=== PATIENT | female | born 1955 | race Caucasian/White ===

== ENCOUNTER 2019-05-23 07:34 | Emergency (ER) | payer OTHER | END 2019-05-23 12:25 | disposition home or self-care (01) | LOC: JER 07:34 ==

== ENCOUNTER 2019-05-25 19:02 | Inpatient (IN) | payer OTHER ==
[2019-05-25 19:23] VITALS: BMI 30.7
--- NOTE | 2019-05-25 20:37 | PDOC ---
History of Present Illness - General Chief Complaint: Pain Stated Complaint: ABD PAIN Time Seen by Provider: 05/25/19 20:36 History Source: Patient, Sibling (sister) Exam Limitations: Language Barrier - History of Present Illness Initial Comments: 05/25/19 21:08 Quita Mayen is a 64yF with PMHx of diabetes presenting with suprapubic pain. Pain constant for last 4d, in suprapubic region radiating to L flank and back. Associated nausea. Was seen 4d ago, diagnosed with mild subclinical diverticulitis and d/c with pain meds and antibiotics. CT showed hepatosplenomegaly and 2cm adenoma with no signs of diverticulitis. Continues to have pain despite medication. Threw up 5x today, last emesis 3pm, non bloody. Denies fever, chest pain, urinary, vaginal symptoms, bowel movement changes. Past History - Past Medical History Allergies/Adverse Reactions: Allergies Allergy/AdvReac Type Severity Reaction Status Date / Time No Known Allergies Allergy Verified 05/25/19 19:22 Home Medications: Ambulatory Orders metFORMIN HCL [Metformin HCl] 0 mg PO BID 05/26/19 COPD: No Diabetes: Yes - Suicide/Smoking/Psychosocial Hx Smoking History: Never smoked Information on smoking cessation initiated: No Hx Alcohol Use: No Drug/Substance Use Hx: No Review of Systems - Review of Systems Constitutional: No: Chills, Fever HEENTM: No: Eye Pain, Nose Pain, Throat Pain, Mouth Pain Respiratory: No: Cough, Shortness of Breath Cardiac (ROS): No: Chest Pain, Palpitations, Syncope ABD/GI: Yes: Nausea, Vomiting. No: Abdominal Distended, Constipated, Diarrhea, Rectal Bleeding : No: Burning, Dysuria, Discharge, Hematuria, Incontinence, Pain, Urgency Musculoskeletal: Yes: Back Pain (left). No: Joint Pain, Muscle Pain, Muscle Weakness Integumentary: No: Bruising, Flushing, Lesions, Lumps Neurological: No: Headache, Paresthesia, Seizure, Tingling Psychiatric: No: Anxiety, Depression Endocrine: No: Excessive Sweating, Flushing, Intolerance to Cold, Intolerance to Heat Hematologic/Lymphatic: No: Anemia, Blood Clots, Easy Bleeding *Physical Exam - Vital Signs Last Vital Signs Temp Pulse Resp BP Pulse Ox 98.1 F 81 18 123/82 97 05/25/19 19:20 05/25/19 19:20 05/25/19 19:20 05/25/19 19:20 05/25/19 19:20 - Physical Exam General Appearance: Yes: Nourished, Appropriately Dressed. No: Apparent Distress HEENT: positive: EOMI, JENNIFER, Normal Voice, Hearing Grossly Normal. negative: Tonsillar Exudate, Sinus Tenderness Respiratory/Chest: positive: Lungs Clear, Normal Breath Sounds. negative: Chest Tender, Respiratory Distress, Decreased Breath Sounds, Crackles, Rales, Rhonchi, Stridor, Wheezing Gastrointestinal/Abdominal: positive: Normal Bowel Sounds, Tender (mild tenderness suprapubic region, mild discomfort L flank), Flat, Soft, Organomegaly. negative: Pulsatile Mass, Distended, Guarding, Rebound, Hernia, Mass Musculoskeletal: positive: Normal Inspection. negative: CVA Tenderness (R) ( minimal discomfort L paraspinal thoracic region), CVA Tenderness (L), Muscle Spasm, Vertebral Tenderness Integumentary: positive: Normal Color Neurologic: positive: Fully Oriented, Alert, Normal Mood/Affect, Normal Response. negative: Sensory Deficit, Confused, Disoriented ED Treatment Course - LABORATORY CBC & Chemistry Diagram: 05/25/19 22:25 05/25/19 22:25 Medical Decision Making - Medical Decision Making 05/25/19 21:04 CBC CMP lipase UA zofran for nausea morphine reduced pain to 5 Cr 1.9 - PRINCE UA normal ordered CT AB/pelvis Quita Mayen is a 64yF with PMHx of diabetes presenting with suprapubic pain. Given zofran, 4 morphine w partial pain relief. PRINCE with Cr 1.9 UA normal lowering likelihood of UTI/nephrolithiasis. Pending CT AB Admit to inpatient for PRINCE and intractable suprapubic pain. *DC/Admit/Observation/Transfer Diagnosis at time of Disposition: PRINCE (acute kidney injury), Suprapubic pain, acute - Discharge Dispostion Condition at time of disposition: Stable - Referrals Referrals: Waldemar Mayen MD [Primary Care Provider] - - Patient Instructions - Post Discharge Activity
[2019-05-25] MEDS ORDERED: morphine CARPU-JECT 4 MG/1 ML DISP.SYRIN IVPUSH ONE (21:02)
[2019-05-25] MEDS ORDERED: ONDANSETRON 4 MG/2 ML VIAL IVPUSH ONE (21:03)
[2019-05-25] MEDS ORDERED: MORPHINE SULFATE 2 MG/ML VIAL ONE (21:44)
[2019-05-25] MEDS ORDERED: ONDANSETRON 4 MG/2 ML VIAL ONE (21:45)
[2019-05-25 22:56] LABS: BASO % 0.2 % (0-2.0); EOS % 0.9 % (0-4.5); HEMATOCRIT 39.7 % (32.4-45.2); LYMPH % 12.3 % (8-40); MCH 28.2 pg (25.7-33.7); MCHC 32.9 g/dl (32.0-36.0); MEAN CELL VOLUME 85.8 fl (80-96); MEAN PLT VOLUME 10.9 fl (7.5-11.1); MONO % 5.1 % (3.8-10.2); NEUT % 81.5 % (42.8-82.8); PLATELET COUNT 90 K/MM3 (134-434); RBC 4.63 M/mm3 (3.60-5.2); RDW 15.9 % (11.6-15.6); WHITE BLOOD COUNT 8.1 K/mm3 (4.0-10.0)
[2019-05-25 23:18] LABS: ALBUMIN 4.2 g/dl (3.4-5.0); BILIRUBIN,TOTAL 0.6 mg/dL (0.2-1); BLOOD UREA NITROGEN 28.1 mg/dL (7-18); CALCIUM 9.4 mg/dL (8.5-10.1); CREATININE 1.9 mg/dL (0.55-1.3); TOT PROT 7.8 g/dl (6.4-8.2)
[2019-05-25] MEDS ORDERED: SODIUM CHLORIDE 0.9% 500 ML INFUS.BAG IV ONE (23:30)
[2019-05-25] MEDS ORDERED: FAMOTIDINE 20 MG/50 ML IVPB 20 MG/50 ML MG IVPB ONE (23:43)
--- NOTE | 2019-05-25 23:45 | PDOC ---
Documentation entered by Verito Yoo SCRIBE, acting as scribe for Barbara Archer MD. Barbara Archer MD: This documentation has been prepared by the Naila horton Brenda, SCRIBE, under my direction and personally reviewed by me in its entirety. I confirm that the documentation accurately reflects all work, treatment, procedures, and medical decision making performed by me. Attending Attestation - Resident Resident Name: Ashley,Berny - ED Attending Attestation I have performed the following: I have examined & evaluated the patient, The case was reviewed & discussed with the resident, I agree w/resident's findings & plan, Exceptions are as noted - HPI HPI: 05/25/19 21:48 The patient is a 61 year old female, with a significant PMH of DM who presents to the emergency department with 4 days of supoerpubic abdominal pain, accompanied by nausea and 5 episodes of NBNB emesis. As per patient, the superpubc pain radiates to his left flank. She reports being at [facility] 4 days ago for the same symptoms, and was diagnosed with subclinical diverticulitis and was discharged with pain medications and antibiotics. Patient reports continued pain despite medications, prompting her arrival to the ED. Patient endorses dysuria. The patient denies chest pain, shortness of breath, headache and dizziness. Denies fever, chills, diarrhea and constipation. Allergies: NKA Social history: Denies any tobacco, alcohol, or drug use. PCP:Waldemar Mayen - Physicial Exam PE: 05/25/19 23:28 GENERAL: Awake, alert, and fully oriented, in no acute distress HEAD: No signs of trauma EYES: PERRLA, EOMI, sclera anicteric, conjunctiva clear ENT: Auricles normal inspection, hearing grossly normal, nares patent, oropharynx clear without exudates. Moist mucosa NECK: Normal ROM, supple, no lymphadenopathy, JVD, or masses LUNGS: Breath sounds equal, clear to auscultation bilaterally. No wheezes, and no crackles HEART: Regular rate and rhythm, normal S1 and S2, no murmurs, rubs or gallops ABDOMEN: (+) LLQ tenderness to palpation. Soft. No guarding, no rebound. No masses EXTREMITIES: Normal range of motion, no edema. No clubbing or cyanosis. No cords, erythema. NEUROLOGICAL: Cranial nerves II through XII grossly intact. Normal speech, normal gait SKIN: Warm, Dry, normal turgor, no rashes or lesions noted. - Medical Decision Making 05/25/19 23:44 Pt will be sent for a dry CT abd pelvis as she has new renal insufficiency, and because she has slightly higher WBC with left shift and she has LLQ pain that is persistent despite abx; perhaps she has infection or hernia. 05/26/19 04:00 Patient Name: MAGDALENA MAYEN THIS IS A PRELIMINARY REPORT FROM [facility] DATE OF SERVICE: 2019-05-26 01:20:52 IMAGES: [id number] EXAM: CT ABDOMEN AND PELVIS WITHOUT CONTRAST No nephrolithiasis, ureterolithiasis or obstructive uropathy. No bladder calculi. Nonspecific trace right perinenephric fat stranding. Unremarkable pancreas and gallbladder. Hepatosplenomegaly. 2.1 cm adenoma right adrenal gland. No bowel obstruction, colitis, diverticulitis, free fluid or free air. Normal appendix. Calcified uterine fibroid. Bone island T9. Hemangioma right ilium. Degenerative changes bilateral hips. Cystic focus with well-defined sclerotic borders left femoral neck. Pt will be admitted for Acute renal insufficiency.
[2019-05-26 00:18] LABS: URINE APPEARANCE CLEAR; URINE BILIRUBIN NEGATIVE (NEGATIVE); URINE COLOR YELLOW; URINE GLUCOSE (UA) NEGATIVE (NEGATIVE); URINE KETONE NEGATIVE (NEGATIVE); URINE LEUK ESTERASE NEGATIVE (NEGATIVE); URINE NITRITE NEGATIVE (NEGATIVE); URINE PROTEIN NEGATIVE (NEGATIVE); URINE UROBILINOGEN 0.2 mg/dL (0.2-1.0)
[2019-05-26] MEDS ORDERED: morphine CARPU-JECT 4 MG/1 ML DISP.SYRIN IVPUSH ONE (02:58)
[2019-05-26] MEDS ORDERED: MORPHINE SULFATE 2 MG/ML VIAL ONE (03:30)
[2019-05-26] MEDS ORDERED: ONDANSETRON 4 MG/2 ML VIAL IVPUSH PRN (08:35)
--- NOTE | 2019-05-26 08:45 | HP ---
Admitting History and Physical - Primary Care Physician PCP: Waldemar Mayen - Admission Chief Complaint: Abdominal pain with vomiting History of Present Illness: Patient is a 64 y/o female with past medical history of DM. Patient presented to ER with complaints of non-radiating L sided abdominal pain with vomiting. She presented to ER 3 days ago for same chief complaint and was discharged home with PO antibiotics. Yesterday L sided abdominal pain accompanied with 3 episodes of NBNB vomiting. Patient denies recent travel, fever, chills. History Source: Patient, Family Member Limitations to Obtaining History: Language Barrier ([id number] translate at bedside) - Past Medical History Endocrine: Yes: Diabetes Mellitus - Past Surgical History Past Surgical History: Yes: None - Smoking History Smoking history: Never smoked - Alcohol/Substance Use Hx Alcohol Use: No - Social History ADL: Independent History of Recent Travel: No Home Medications - Allergies Allergies/Adverse Reactions: Allergies Allergy/AdvReac Type Severity Reaction Status Date / Time No Known Allergies Allergy Verified 05/25/19 19:22 - Home Medications Home Medications: Ambulatory Orders metFORMIN HCL [Metformin HCl] 0 mg PO BID 05/26/19 Review of Systems - Review of Systems Constitutional: reports: No Symptoms Eyes: reports: No Symptoms HENT: reports: No Symptoms Neck: reports: No Symptoms Cardiovascular: reports: No Symptoms Respiratory: reports: No Symptoms Gastrointestinal: reports: Abdominal Pain, Constipation Genitourinary: reports: No Symptoms Breasts: reports: No Symptoms Reported Musculoskeletal: reports: No Symptoms Integumentary: reports: Pruritis (RUE), Rash Neurological: reports: No Symptoms Endocrine: reports: No Symptoms Hematology/Lymphatic: reports: No Symptoms Psychiatric: reports: No Symptoms Physical Examination Vital Signs: Vital Signs Temperature 98.2 F 05/25/19 21:05 Pulse Rate 64 05/25/19 21:05 Respiratory Rate 18 05/25/19 21:05 Blood Pressure 146/81 05/25/19 21:05 O2 Sat by Pulse Oximetry (%) 95 05/25/19 21:05 Constitutional: Yes: No Distress, Calm Eyes: Yes: Conjunctiva Clear HENT: Yes: Atraumatic Neck: Yes: Supple Cardiovascular: Yes: Regular Rate and Rhythm Respiratory: Yes: Regular, CTA Bilaterally Gastrointestinal: Yes: Normal Bowel Sounds, Soft, Tenderness (LLQ) Musculoskeletal: Yes: WNL Extremities: Yes: WNL Edema: No Integumentary: Yes: Rash (RUE) Neurological: Yes: Alert, Oriented Psychiatric: Yes: Alert, Oriented Labs: CBC, BMP 05/25/19 22:25 05/25/19 22:25 Imaging - Results Cat Scan: Pending Problem List - Problems (1) Diabetes mellitus Assessment/Plan: -BGM ACHS -HgA1c -Metformin -ISS -when resume PO intake will order diabetic diet Code(s): E11.9 - TYPE 2 DIABETES MELLITUS WITHOUT COMPLICATIONS (2) PRINCE (acute kidney injury) Assessment/Plan: -BUN/Cr -IV hydration -if renal function does not improve will consider renal consult -monitor renal function daily Code(s): N17.9 - ACUTE KIDNEY FAILURE, UNSPECIFIED (3) Abdominal pain Assessment/Plan: -CT scan results pending -Clear liquid diet -GI consult -IV hydration -zofran prn for nausea -pantoprazole Code(s): R10.9 - UNSPECIFIED ABDOMINAL PAIN Qualifiers: Abdominal location: left lower quadrant Qualified Code(s): R10.32 - Left lower quadrant pain Assessment/Plan see problem list dvt ppx
[2019-05-26] MEDS ORDERED: morphine CARPU-JECT 2 MG/1 ML DISP.SYRIN IVPUSH PRN (09:00)
[2019-05-26] MEDS ORDERED: amLODIPine BESYLATE 5 MG TABLET (FP) PO ONE (09:26)
[2019-05-26] MEDS ORDERED: HEPARIN NA (PORCINE) 5,000 UNITS/ML 1ML VIAL SQ SCH (10:00)
[2019-05-26] MEDS ORDERED: HEPARIN NA (PORCINE) 5,000 UNITS/ML 1ML VIAL ONE (10:08)
[2019-05-26] MEDS ORDERED: amLODIPine BESYLATE 5 MG TABLET (FP) ONE (10:08)
[2019-05-26] MEDS ORDERED: PANTOPRAZOLE 40 MG TABLET (FP) ONE (10:08)
[2019-05-26] MEDS: SODIUM CHLORIDE 1,000 ML IV SCH (10:19)
[2019-05-26] MEDS: PANTOPRAZOLE 40 MG TABLET (FP) PO SCH (10:20)
[2019-05-26] MEDS: INSULIN SLIDING SCALE (NOVOLOG) 1 VIAL SQ SCH ×3 (11:22→22:01)
[2019-05-26] MEDS: MORPHINE SULFATE 2 MG/ML VIAL IVPUSH PRN ×2 (12:44→22:02)
--- NOTE | 2019-05-26 15:27 | CON.GI ---
Consult Consult Specialty:: Gastroenterology Referred by:: Nava Tran NP Reason for Consultation:: abdominal pain - History of Present Illness Chief Complaint: suprapubic and LLQ pain History of Present Illness: 64F is admitted for a persistent supprapubic and LLQ pain. The history is obtained with her sister Cayla boyd. The pain is not affected by eating or defecation. She denies chills or fevers. She does have burning on urination. She was seen in the ER 2 days earlier and discharged on Cipro and Flagyl empirically but her CT scan revealed no evidence of diverticulitis, colitis or obstruction. She does have an adrenal adenoma and hepatosplenomegaly. She has a colonoscopy remotely which she reports as normal. She is scheduled to arrange a colonoscopy with Dr Ambrose on 06/08/19. There is no FH of colon cancer. She denies recent weight loss or rectal bleeding. Her father of pancreatic cancer. - History Source History Provided By: Patient Limitations to Obtaining History: Language Barrier - Past Medical History Hepatobiliary: Yes: Other (hepatosplenomegaly) Endocrine: Yes: Diabetes Mellitus, Other (right adrenal adenoma) - Past Surgical History Past Surgical History: Yes: None - Alcohol/Substance Use Hx Alcohol Use: No - Smoking History Smoking history: Never smoked - Social History Usual Living Arrangement: Alone ADL: Independent Place of : Other ([place]) Came to [place]year[place] 30 year ago History of Recent Travel: No Home Medications - Allergies Allergies/Adverse Reactions: Allergies Allergy/AdvReac Type Severity Reaction Status Date / Time No Known Allergies Allergy Verified 05/25/19 19:22 - Home Medications Home Medications: Ambulatory Orders metFORMIN HCL [Metformin HCl] 500 mg PO BID 05/26/19 Family Disease History - Family Disease History Family Disease History: Diabetes: Mother, Heart Disease: Mother, CA: Father ( pancreatic) Review of Systems Unable to obtain ROS, reason: language barrier Physical Exam-GI Vital Signs: Vital Signs Temperature 98.5 F 05/26/19 11:28 Pulse Rate 80 05/26/19 11:28 Respiratory Rate 18 05/26/19 11:28 Blood Pressure 150/70 05/26/19 11:28 O2 Sat by Pulse Oximetry (%) 98 05/26/19 11:28 CBC,CMP WBC 8.1 K/mm3 (4.0-10.0) 05/25/19 22:25 RBC 4.63 M/mm3 (3.60-5.2) 05/25/19 22:25 Hgb 13.0 GM/dL (10.7-15.3) 05/25/19 22:25 Hct 39.7 % (32.4-45.2) 05/25/19 22:25 MCV 85.8 fl (80-96) 05/25/19 22:25 MCH 28.2 pg (25.7-33.7) 05/25/19 22:25 MCHC 32.9 g/dl (32.0-36.0) 05/25/19 22:25 RDW 15.9 % (11.6-15.6) H 05/25/19 22:25 Plt Count 90 K/MM3 (134-434) L D 05/25/19 22:25 MPV 10.9 fl (7.5-11.1) 05/25/19 22:25 Absolute Neuts (auto) 6.6 K/mm3 (1.5-8.0) 05/25/19 22:25 Neutrophils % 81.5 % (42.8-82.8) D 05/25/19 22:25 Lymphocytes % 12.3 % (8-40) D 05/25/19 22:25 Monocytes % 5.1 % (3.8-10.2) 05/25/19 22:25 Eosinophils % 0.9 % (0-4.5) 05/25/19 22:25 Basophils % 0.2 % (0-2.0) 05/25/19 22:25 Nucleated RBC % 0 % (0-0) 05/25/19 22:25 Sodium 137 mmol/L (136-145) 05/25/19 22:25 Potassium 4.0 mmol/L (3.5-5.1) 05/25/19 22:25 Chloride 103 mmol/L (98-107) 05/25/19 22:25 Carbon Dioxide 25 mmol/L (21-32) 05/25/19 22:25 Anion Gap 9 MMOL/L (8-16) 05/25/19 22:25 BUN 28.1 mg/dL (7-18) H 05/25/19 22:25 Creatinine 1.9 mg/dL (0.55-1.3) H 05/25/19 22:25 Est GFR (CKD-EPI)AfAm 31.29 05/25/19 22:25 Est GFR (CKD-EPI)NonAf 27.00 05/25/19 22:25 POC Glucometer 181 UNITS (80-120) 05/26/19 11:16 Random Glucose 181 mg/dL (74-106) H 05/25/19 22:25 Lactic Acid 0.9 mmol/L (0.4-2.0) 05/25/19 22:25 Calcium 9.4 mg/dL (8.5-10.1) 05/25/19 22:25 Total Bilirubin 0.6 mg/dL (0.2-1) 05/25/19 22:25 AST 20 U/L (15-37) 05/25/19 22:25 ALT 20 U/L (13-61) 05/25/19 22:25 Alkaline Phosphatase 80 U/L (45-117) 05/25/19 22:25 Total Protein 7.8 g/dl (6.4-8.2) 05/25/19 22:25 Albumin 4.2 g/dl (3.4-5.0) 05/25/19 22:25 Lipase 256 U/L (73-393) 05/25/19 22:25 Current Medications Generic Name Dose Route Start Last Admin Trade Name Freq PRN Reason Stop Dose Admin Ciprofloxacin 500 mg 05/26/19 22:00 Cipro (Restricted To Id) PO 05/30/19 21:59 BID PATRICIA Heparin Sodium (Porcine) 5,000 unit 05/26/19 10:00 05/26/19 10:19 Heparin - SQ 5,000 unit BID PATRICIA Administration Sodium Chloride 1,000 mls @ 75 mls/hr 05/26/19 08:45 05/26/19 10:19 Normal Saline - IV 75 mls/hr ASDIR PATRICIA Administration Insulin Aspart 0 vial 05/26/19 11:00 05/26/19 11:22 Novolog Vial Sliding Scale - SQ Not Given ACHS [facility] Protocol Morphine Sulfate 2 mg 05/26/19 09:21 05/26/19 12:44 Morphine Sulfate IVPUSH 2 mg Q6H PRN Administration PAIN LEVEL 6-10 Ondansetron HCl 4 mg 05/26/19 08:35 Zofran Injection IVPUSH Q6H PRN NAUSEA Pantoprazole Sodium 40 mg 05/26/19 10:00 05/26/19 10:20 Protonix - PO 40 mg DAILY PATRICIA Administration Constitutional: Yes: Well Nourished Eyes: Yes: Conjunctiva Clear HENT: Yes: Atraumatic Neck: Yes: Supple Cardiovascular: Yes: Regular Rate and Rhythm Respiratory: Yes: CTA Bilaterally Gastrointestinal Inspection: Yes: WNL ...Auscultate: Yes: Normoactive Bowel Sounds ...Palpate: Yes: Soft, Tenderness (mild LLQ tenderness, no peritoneal signs) ...Percussion: Yes: Tympanitic ...Rectal Exam: Yes: Guaiac Negative (no masses, brown g neg stool) Labs: CBC, BMP 05/25/19 22:25 05/25/19 22:25 Imaging - Results Cat Scan: Report Reviewed ( Final Report CT ABDOMEN & PELVIS CT W/O CONTR Show Printer-Friendly Version with Image (1 of 1) Show Printer- Friendly Version without images Patient Name: Magdalena Mayen : 1954 ID: [id number] Study Date: 26-May-2019 01:20 Marie Loretta Name : MAGDALENA MAYEN DEPARTMENT OF RADIOLOGY Phys: Berny Ramirez : 1954 Age: 64 Sex: F [facility] Acct: [id number] Loc: [address] Exam Date: 05/26/19 Status: [place] [address] Unit Number: [id number] EXAM#: TYPE/EXAM: RESULT: [id number] CT/ABDOMEN PELVIS CT W/O CONTR HISTORY PROVIDED: Suprapubic pain TECHNIQUE: Sequential axial images were obtained from the domes of the diaphragm through the symphysis pubis. A small amount of residual contrast material is noted within the colon from a previous CT scan dated 05/23/2019. Since the previous examination, there has been no significant change. Again noted is a mild degree of hepatosplenomegaly. Also again noted is a 2.1 cm right adrenal nodule consistent with a benign adenoma. There is no evidence of pneumoperitoneum, bowel obstruction or intra- abdominal abscess. There is no CT evidence of acute appendicitis or diverticulitis. IMPRESSION: No evidence of diverticulitis or acute pathology within the abdomen the pelvis. No significant change since 05/23/2019. Reported By: Reagan Bales MD 05/26/19909 Technologist: Lencho Alvarez Transcribed Date/Time: 05/26/19909 Early Years Teacher : Reagan Bales Printed Date/Time: By: Signed by: Reagan Bales Signed on: 26-May-2019 09:11) Problem List - Problems (1) Hepatosplenomegaly Code(s): R16.2 - HEPATOMEGALY WITH SPLENOMEGALY, NOT ELSEWHERE CLASSIFIED (2) Adrenal adenoma Code(s): D35.00 - BENIGN NEOPLASM OF UNSPECIFIED ADRENAL GLAND (3) Diabetes mellitus Code(s): E11.9 - TYPE 2 DIABETES MELLITUS WITHOUT COMPLICATIONS (4) Suprapubic pain, acute Code(s): R10.2 - PELVIC AND PERINEAL PAIN Assessment/Plan Assessment: -- After reviewing the CT I believe that Magdalena has intestinal colicky pain due to fecal retention as a result of diabetic autonomic neuropathy -- Hepatosplenomegaly liekly due to fatty liver associated with diabetes mellitus Plan: -- Miralax TID -- Will advance diet -- Advised to keep that appt with Dr Ambrose and undergo repeat colonoscopy to exclude an underlying colon cancer
--- NOTE | 2019-05-26 17:01 | CON.CARD ---
Consult Consult Specialty:: Cardiology Reason for Consultation:: HTN - History of Present Illness Chief Complaint: Presently comfortable History of Present Illness: This is a 64 year old female with a PMH of DM. She presents now with non- radiating L sided abdominal pain with vomiting over several days. No cardiac symptoms Noted to have BP reading as high as 191/98 mmHg then down to 150/70 mmHg. - Past Medical History Hepatobiliary: Yes: Other (hepatosplenomegaly) Endocrine: Yes: Diabetes Mellitus, Other (right adrenal adenoma) - Past Surgical History Past Surgical History: Yes: None - Alcohol/Substance Use Hx Alcohol Use: No - Smoking History Smoking history: Never smoked - Social History Usual Living Arrangement: Alone ADL: Independent History of Recent Travel: No Home Medications - Allergies Allergies/Adverse Reactions: Allergies Allergy/AdvReac Type Severity Reaction Status Date / Time No Known Allergies Allergy Verified 05/25/19 19:22 - Home Medications Home Medications: Ambulatory Orders Atorvastatin Ca [Lipitor] 40 mg PO HS 05/26/19 Glimepiride [Amaryl -] 2 mg PO DAILY 05/26/19 Tramadol HCl [Ultram] 50 mg PO Q6H PRN 05/26/19 metFORMIN HCL [Metformin HCl] 500 mg PO BID 05/26/19 Family Disease History - Family Disease History Family Disease History: Diabetes: Mother, Heart Disease: Mother, CA: Father ( pancreatic) Vital Signs: Vital Signs Temperature 98.5 F 05/26/19 11:28 Pulse Rate 80 05/26/19 11:28 Respiratory Rate 18 05/26/19 11:28 Blood Pressure 150/70 05/26/19 11:28 O2 Sat by Pulse Oximetry (%) 98 05/26/19 11:28 Constitutional: Yes: Well Nourished Eyes: Yes: WNL HENT: Yes: WNL Neck: Yes: WNL Respiratory: Yes: CTA Bilaterally Gastrointestinal: Yes: Soft Cardiovascular: Yes: Regular Rate and Rhythm Heart Sounds: Yes: S1, S2 Extremities: Yes: WNL Edema: No Neurological: Yes: Alert, Oriented - Other Data Labs, Other Data: CBC, BMP 05/25/19 22:25 05/25/19 22:25 Assessment/Plan 64 year old female with a PMH of DM. She presents now with non-radiating L sided abdominal pain with vomiting over several days. No cardiac symptoms Noted to have BP reading as high as 191/98 mmHg then down to 150/70 mmHg. Received Norvasc 5 mg in the ED would continue Norvasc 5 mg PO daily for that now.
[2019-05-26] MEDS: POLYETHYLENE GLYCOL 3350 119 GM BTL PO SCH (22:01)
[2019-05-27] MEDS: SODIUM CHLORIDE 1,000 ML IV SCH ×2 (04:08→10:47)
[2019-05-27] MEDS: INSULIN SLIDING SCALE (NOVOLOG) 1 VIAL SQ SCH ×4 (06:41→21:49)
[2019-05-27] MEDS: POLYETHYLENE GLYCOL 3350 119 GM BTL PO SCH ×3 (06:41→21:48)
[2019-05-27] MEDS: MORPHINE SULFATE 2 MG/ML VIAL IVPUSH PRN ×2 (06:42→21:49)
[2019-05-27 07:51] LABS: BASO % 0.4 % (0-2.0); EOS % 1.5 % (0-4.5); HEMATOCRIT 36.2 % (32.4-45.2); HEMOGLOBIN 12.2 GM/dL (10.7-15.3); LYMPH % 17.6 % (8-40); MCH 28.8 pg (25.7-33.7); MCHC 33.7 g/dl (32.0-36.0); MEAN CELL VOLUME 85.5 fl (80-96); MEAN PLT VOLUME 10.3 fl (7.5-11.1); MONO % 7.2 % (3.8-10.2); NEUT % 73.3 % (42.8-82.8); PLATELET COUNT 82 K/MM3 (134-434); RBC 4.23 M/mm3 (3.60-5.2); RDW 15.7 % (11.6-15.6); WHITE BLOOD COUNT 5.4 K/mm3 (4.0-10.0)
[2019-05-27 08:26] LABS: ALBUMIN 3.4 g/dl (3.4-5.0); BILIRUBIN,TOTAL 0.5 mg/dL (0.2-1); BLOOD UREA NITROGEN 20.4 mg/dL (7-18); CALCIUM 8.7 mg/dL (8.5-10.1); CREATININE 1.4 mg/dL (0.55-1.3); MAGNESIUM 1.9 mg/dL (1.8-2.4); POTASSIUM 3.7 mmol/L (3.5-5.1); TOT PROT 6.8 g/dl (6.4-8.2)
[2019-05-27] MEDS: PANTOPRAZOLE 40 MG TABLET (FP) PO SCH (10:47)
--- NOTE | 2019-05-27 12:58 | PN ---
Progress Note, Physician Chief Complaint: Abdominal Pain History of Present Illness: Previous notes and events reviewed awake and alert NAD denies abdominal pain, N/V denies chest pain or SOB Abd US reviewed - Current Medication List Current Medications: Active Medications Amlodipine Besylate (Norvasc -) 5 mg PO DAILY [facility] Sodium Chloride (Normal Saline -) 1,000 mls @ 75 mls/hr IV ASDIR [facility] Last Admin: 05/27/19 10:47 Dose: Not Given Insulin Aspart (Novolog Vial Sliding Scale -) 0 vial SQ ACHS [facility]1983; Protocol Last Admin: 05/27/19 12:05 Dose: Not Given Levofloxacin (Levaquin -) 250 mg PO DAILY [facility] Last Admin: 05/27/19 10:47 Dose: 250 mg Morphine Sulfate (Morphine Sulfate) 2 mg IVPUSH Q6H PRN PRN Reason: PAIN LEVEL 6-10 Last Admin: 05/27/19 06:42 Dose: 2 mg Ondansetron HCl (Zofran Injection) 4 mg IVPUSH Q6H PRN PRN Reason: NAUSEA Pantoprazole Sodium (Protonix -) 40 mg PO DAILY [facility] Last Admin: 05/27/19 10:47 Dose: 40 mg Polyethylene Glycol (Miralax (For Daily Use) -) 17 gm PO TID [facility] Last Admin: 05/27/19 06:41 Dose: 17 grams - Objective Vital Signs: Vital Signs Temperature 98.7 F 05/27/19 11:28 Pulse Rate 76 05/27/19 11:28 Respiratory Rate 20 05/27/19 11:28 Blood Pressure 140/89 05/27/19 11:28 O2 Sat by Pulse Oximetry (%) 98 05/26/19 11:28 Constitutional: Yes: No Distress, Calm Eyes: Yes: Conjunctiva Clear HENT: Yes: Atraumatic Cardiovascular: Yes: Regular Rate and Rhythm Respiratory: Yes: Regular, CTA Bilaterally Gastrointestinal: Yes: Normal Bowel Sounds, Soft Musculoskeletal: Yes: WNL Extremities: Yes: WNL Edema: No Neurological: Yes: Alert, Oriented Psychiatric: Yes: Alert, Oriented Labs: CBC, BMP 05/27/19 07:12 05/27/19 07:12 Microbiology 05/25/19 23:30 Urine - Urine Clean Catch Urine Culture - Final Gram Negative [place] - ....Imaging Cat Scan: Report Reviewed Ultrasound: Report Reviewed Problem List - Problems (1) Diabetes mellitus Assessment/Plan: -BGM ACHS -HgA1c -Metformin -ISS -diabetic idet Code(s): E11.9 - TYPE 2 DIABETES MELLITUS WITHOUT COMPLICATIONS (2) PRINCE (acute kidney injury) Assessment/Plan: -BUN/Cr 20.4/1.4 -IV hydration -if renal function does not improve will consider renal consult -monitor renal function daily Code(s): N17.9 - ACUTE KIDNEY FAILURE, UNSPECIFIED (3) Abdominal pain Assessment/Plan: -CT scan results shows no evidence of diverticulitis -GI on board -IV hydration -zofran prn for nausea -pantoprazole Code(s): R10.9 - UNSPECIFIED ABDOMINAL PAIN Qualifiers: Abdominal location: left lower quadrant Qualified Code(s): R10.32 - Left lower quadrant pain (4) Hepatomegaly Assessment/Plan: -Abdominal US shows no evidence of cholelithiasis or acute cholecystitis, diffuse fatty infiltration of liver -chronic liver workup pending -LFT wnl Code(s): R16.0 - HEPATOMEGALY, NOT ELSEWHERE CLASSIFIED (5) Thrombocytopenia Assessment/Plan: -PLT 82 -Hematology consult Code(s): D69.6 - THROMBOCYTOPENIA, UNSPECIFIED Assessment/Plan see problem list dvt ppx
[2019-05-27] MEDS: amLODIPine BESYLATE 5 MG TABLET (FP) PO SCH (14:02)
--- NOTE | 2019-05-27 15:25 | PN.GI ---
GI Progress Note Subjective: GI NOte ( covering the [facility] service): Pain has resolved. 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 -- Hepatosplenomegaly liekly due to fatty liver associated with diabetes mellitus Plan: -- Miralax TID -- No GI objections to discharge -- Advised to keep that appt with Dr Ambrose and undergo repeat colonoscopy to exclude an underlying colon cancer Problem List - Problems (1) Hepatosplenomegaly Code(s): R16.2 - HEPATOMEGALY WITH SPLENOMEGALY, NOT ELSEWHERE CLASSIFIED (2) Adrenal adenoma Code(s): D35.00 - BENIGN NEOPLASM OF UNSPECIFIED ADRENAL GLAND (3) Diabetes mellitus Code(s): E11.9 - TYPE 2 DIABETES MELLITUS WITHOUT COMPLICATIONS (4) Suprapubic pain, acute Code(s): R10.2 - PELVIC AND PERINEAL PAIN (5) Fatty (change of) liver, not elsewhere classified Code(s): K76.0 - FATTY (CHANGE OF) LIVER, NOT ELSEWHERE CLASSIFIED
[2019-05-28] MEDS: INSULIN SLIDING SCALE (NOVOLOG) 1 VIAL SQ SCH ×2 (06:19→12:03)
[2019-05-28] MEDS: POLYETHYLENE GLYCOL 3350 119 GM BTL PO SCH (06:19)
[2019-05-28] MEDS: SODIUM CHLORIDE 1,000 ML IV SCH ×2 (06:20→11:30)
[2019-05-28] MEDS: PANTOPRAZOLE 40 MG TABLET (FP) PO SCH (11:30)
[2019-05-28] MEDS: amLODIPine BESYLATE 5 MG TABLET (FP) PO SCH (11:30)
[2019-05-28 11:32] VITALS: BP 143/78; PULSE 66; TEMP 98.1
--- NOTE | 2019-05-28 12:26 | DS ---
Physical Examination Vital Signs: Vital Signs Temperature 98.1 F 05/28/19 11:30 Pulse Rate 66 05/28/19 11:30 Respiratory Rate 18 05/28/19 11:30 Blood Pressure 143/78 05/28/19 11:30 O2 Sat by Pulse Oximetry (%) 98 05/27/19 09:00 Constitutional: Yes: Calm Neck: Yes: Trachea Midline Cardiovascular: Yes: Regular Rate and Rhythm, S1, S2 Respiratory: Yes: CTA Bilaterally Gastrointestinal: Yes: Normal Bowel Sounds, Soft Neurological: Yes: Alert, Oriented Labs: CBC, BMP 05/27/19 07:12 05/27/19 07:12 Discharge Summary Reason For Visit: COLITIS Current Active Problems PRINCE (acute kidney injury) (Acute) Adrenal adenoma (Acute) Diabetes mellitus (Acute) Fatty (change of) liver, not elsewhere classified (Acute) Hepatomegaly (Acute) Hepatosplenomegaly (Acute) Suprapubic pain, acute (Acute) Thrombocytopenia (Acute) Other Procedures: ultrasound. no cholecystitis no cholelithiasis. CT scan abdomen no acute pathology Hospital Course: Patient is a 64 y/o female with past medical history of DM. Patient presented to ER with complaints of non-radiating L sided abdominal pain with vomiting. She presented to ER 3 days ago for same chief complaint and was discharged home with PO antibiotics. Yesterday L sided abdominal pain accompanied with 3 episodes of NBNB vomiting. Patient denies recent travel, fever, chills patient seen by GI told miralax TID patient to follow up with her own senior escrow officer regarding thrombocytopenia Condition: Stable - Instructions Diet, Activity, Other Instructions: follow up with your senior escrow officer in one week Referrals: Waldemar Mayen MD [Primary Care Provider] - Disposition: HOME - Home Medications Comprehensive Discharge Medication List: Ambulatory Orders Atorvastatin Ca [Lipitor] 40 mg PO HS 05/26/19 Glimepiride [Amaryl -] 2 mg PO DAILY 05/26/19 Tramadol HCl [Ultram] 50 mg PO Q6H PRN 05/26/19 metFORMIN HCL [Metformin HCl] 500 mg PO BID 05/26/19
[2019-05-28 16:07] LABS: TRANSGLUTAMINASE IGA < 2 U/mL (0-3); TRANSGLUTAMINASE IGG < 2 U/mL (0-5)
[2019-05-28 22:07] LABS: HEP B CORE AB, TOT Negative (Negative)
[2019-05-30 05:07] LABS: ALPHA 2 MACROGLOBULINS,QN 222 mg/dL (110-276); ALT(SGPT)P5P 19 IU/L (0-40); CHOLESTEROL TOTAL 210 mg/dL (100-199); FIBROSIS SCORE 0.08 (0.00-0.21); GLUCOSE SERUM 151 mg/dL (65-99); HEIGHT 64 in (.); WEIGHT- 179 LBS (.)
== END 2019-05-28 13:27 | disposition home or self-care (01) | DRG 74 ==
LOC: JER 19:02 → JERBED 05-26 08:16 → J6S 05-26 10:52
PROVIDERS: ADMIT Family Medicine; ATTEND Family Medicine
DX: E11.43 Type 2 diabetes mellitus with diabetic autonomic (poly)neuropathy (principal); N17.9 Acute kidney failure, unspecified; R10.83 Colic; K52.9 Noninfective gastroenteritis and colitis, unspecified; R16.2 Hepatomegaly with splenomegaly, not elsewhere classified; D35.00 Benign neoplasm of unspecified adrenal gland; K59.00 Constipation, unspecified; D69.6 Thrombocytopenia, unspecified; K76.0 Fatty (change of) liver, not elsewhere classified
CPT/HCPCS: 36415; 74176-TC; 76705-TC; 80053; 81003; 82150; 82172; 82247; 82465; 82728; 82947; 82962; 82977; 83010; 83516; 83540; 83550; 83605; 83690; 83735; 83883; 84436; 84443; 84450; 84460; 84478; 85025; 86038; 86140; 86704; 86706; 86707; 86708; 86709; 86803; 87086; 87340; 99283-25; 99284-25; J1644; J7030; Q9967

== ENCOUNTER 2020-04-07 05:00 | Day surgery (SDC) | payer OTHER ==
[2020-04-04 14:37] VITALS: BMI 28.3
--- NOTE | 2020-04-07 08:00 | HP ---
Satellite H - Chief Complaint Chief Complaint: left wrist fx - Past Medical History Allergies/Adverse Reactions: Allergies Allergy/AdvReac Type Severity Reaction Status Date / Time No Known Allergies Allergy Verified 04/07/20 06:44 Hepatobiliary: Yes: Other (hepatosplenomegaly) Endocrine: Yes: Diabetes Mellitus, Other (right adrenal adenoma) - Current Medications Current Medications: Home Medications Medication Instructions Recorded Atorvastatin Ca [Lipitor] 40 mg PO HS 05/26/19 Glimepiride [Amaryl -] 2 mg PO DAILY 05/26/19 metFORMIN HCL [Metformin HCl] 500 mg PO BID 05/26/19 Hydrocodone/Acetaminophen 1 each PO Q6H #20 tablet MDD 4 04/07/20 [Hydrocodone-Acetamin 5-325 mg] Sitagliptin Phosphate [Januvia] 100 mg PO DAILY 04/07/20 Satellite Physical Exam - Physical Examination Vital Signs: Vital Signs Period Temp Pulse Resp BP Sys/Rivera Pulse Ox Last 24 Hr 98.1 F 76 16 132/79 98 General Appearance: Well Nourished, Well Developed, Alert & Oriented x3 ENT: Clear Lung: Normal air movement Extremities: Other (left wrist- + swelling, +ttp ,decr rom, nvi) Neurological: Intact, Alert, Oriented Satellite Impression/Plan - Impression/Plan Impression: left distal radius fx Operative Procedure: left distal radius orif Date to be Performed: 04/07/20
[2020-04-07] MEDS ORDERED: ceFAZolin SODIUM 1 GM VIAL IVPB ONE (08:14)
[2020-04-07] MEDS ORDERED: MIDAZOLAM HCL 2 MG/2 ML SINGLE DOSE VIAL ONE (08:48)
--- NOTE | 2020-04-07 09:21 | OP ---
Operative Note - Note: Operative Date: 04/07/20 ([facility]) Pre-Operative Diagnosis: left distal radius fx Operation: left distal radius ORIF Post-Operative Diagnosis: Same as Pre-op Surgeon: Rogelio Byrne Psychologist Developmental: Frank Ott Anesthesia: General, Local Estimated Blood Loss (mls): 0 (tourniquet)
[2020-04-07] MEDS ORDERED: ONDANSETRON 4 MG/2 ML VIAL IVPUSH PRN (09:45)
[2020-04-07] MEDS ORDERED: LACTATED RINGERS SOLUTION 1,000 ML IV SCH (09:45)
[2020-04-07] MEDS ORDERED: oxyCODONE HCL 5 MG TABLET PO PRN ×2 (09:45)
[2020-04-07] MEDS ORDERED: HYDROmorphone HCl 2 MG/ML VIAL ONE (10:03)
[2020-04-07] MEDS ORDERED: HYDROmorphone HCl 2 MG/ML VIAL IVPUSH ONE ×3 (10:10→10:55)
[2020-04-07 11:04] VITALS: PULSE 70; TEMP 97.8
[2020-04-07] MEDS ORDERED: oxyCODONE HCL 5 MG TABLET ONE (11:49)
[2020-04-07 14:49] VITALS: BP 150/70
--- NOTE | 2020-04-07 23:41 | OP ---
DATE OF OPERATION: DATE OF DICTATION: 04/07/2020 PREOPERATIVE DIAGNOSIS: Left distal radius fracture, comminuted, intraarticular, displaced. POSTOPERATIVE DIAGNOSIS: Left distal radius fracture, comminuted, intraarticular, displaced. PROCEDURE: Left distal radius, open reduction, internal fixation and brachioradialis tenotomy. SURGEON: Julian Peralta MD. DIRECTOR SURGICAL: SHANTELLE Srinivasan. ANESTHESIOLOGIST: OZ Jha. ANESTHESIA: LMA. DRAINS: None. COMPLICATIONS: None. SPECIMENS: None. BLOOD LOSS: None. BLOOD GIVEN: None. FLUID REPLACEMENT: 700 mL Plasmalyte. INDICATION: This patient is 65-year-old right-hand dominant female with the preoperative diagnosis of a left comminuted intraarticular displaced distal radius fracture. After understanding the potential risks, complications, alternatives, benefits to surgery versus nonsurgical treatment, the patient elected to undergo this procedure. She understands that her left wrist may never be quite the same as it was before. She may require additional surgery, removal of hardware. There is a lifelong risk of infection, especially because she has diabetes. There is a risk of posttraumatic arthritis. She may take longer to heal because of the diabetes. She may need physical therapy. She may have decreased range of motion, stiffness, weakness, chronic dysfunction. She understands this and all other potential risks and complications were discussed and has elected to go form with the surgery. DESCRIPTION OF PROCEDURE: The entire case was done under 3.8 loupe magnification. Typical FCR approach was marked out with a marking pen and incision made with No. 15 scalpel blade. Subcutaneous hemostasis was achieved with a bipolar cautery. The radial artery was retracted gently in a radial direction and ulnar to this, using a fresh No. 15 scalpel blade, the muscular fascia was incised. Blunt dissection was done with my index finger down to the volar aspect of the distal radius. Weitlaner retractors were placed deep into the wound for visualization. A periosteal elevator was used to do subperiosteal dissection exposing the fracture site. There was a main transverse component to the distal radius fracture but in addition there were several pieces, some extending towards the radial carpal joint and some towards the distal radial ulnar joint. The fracture site was copiously irrigated and washed out. All debris including hematoma and muscle were removed. A provisional reduction was performed and seemed to come together quite nicely. There was a small metaphyseal defect. X-rays were taken in A-P and lateral planes documenting excellent position of the fracture fragments, restoring radial height inclination and volar tilt. Next a standard hand innovations left volar low profile DVR plate was placed on the volar aspect of the distal radius. Two K-wires were placed and x-rays were taken documenting excellent position, length and subchondral position. Next the central 3.5 mm screw was placed in a standard fashion, this was 14 mm in length, and the second-most ulnar proximal row screw was placed. This was a 24 mm partially threaded locking screw. X-rays again were taken documenting excellent position and support of the subchondral bone. The rest of the screws were then put in, first 2 additional purple proximal screws of 12 and 14 mm in length for 6 cortices proximally and then the silver drill bit was used to put in the remaining 6 screws of both the proximal and distal row from 18 mm to 24 mm of length, all partially threaded locking screws. All of the guides were removed and passed off the field. Final x-rays were taken in A-P and lateral planes. I was quite happy with the fracture reduction position, position of the radial carpal joint, distal radial ulnar joint length, height and tilt. TOTAL TOURNIQUET TIME: 42 minutes. BLOOD LOSS: No blood loss. BLOOD GIVEN: No blood given. COMPLICATIONS: No complications. HARDWARE: We used three 3.5-mm screws of 12, 14, and 14 mm in length, and we used all 4 screws of the proximal-distal row, which were 18 to 24 mm in length, all locking screws, partially threaded. JULIAN PERALTA M.D. [id number]
== END 2020-04-07 13:00 | disposition home or self-care (01) ==
LOC: JASU-SURG 05:00
PROVIDERS: ATTEND Orthopaedic Surgery
PROC: 0PSJ04Z Reposition Left Radius with Internal Fixation Device, Open Approach (ICD-10-PCS; principal; 2020-04-07 08:00)
DX: S52.572A Other intraarticular fracture of lower end of left radius, initial encounter for closed fracture (principal); X58.XXXA Exposure to other specified factors, initial encounter; Y93.9 Activity, unspecified; Y92.9 Unspecified place or not applicable; Y99.9 Unspecified external cause status; E11.9 Type 2 diabetes mellitus without complications; Z79.84 Long term (current) use of oral hypoglycemic drugs
CPT/HCPCS: 25608; C1713; 76000-TC-FY; 82962; 94760

== ENCOUNTER 2021-12-17 16:17 | Emergency (ER) | payer OTHER ==
[2021-12-17 16:29] VITALS: BP 139/56; PULSE 83; TEMP 97.6; BMI 33.3
== END 2021-12-17 18:50 | disposition home or self-care (01) ==
LOC: JER 16:17 → JERFT 16:17
DX: M79.601 Pain in right arm (principal); W01.0XXA Fall on same level from slipping, tripping and stumbling without subsequent striking against object, initial encounter
CPT/HCPCS: 73030-TC-RT-FY; 73060-TC-RT-FY; 99284-25

== ENCOUNTER 2022-10-28 08:16 | Day surgery (SDC) | payer OTHER ==
[2022-10-21 19:04] VITALS: BMI 30.2
[2022-10-28] MEDS ORDERED: LIDOCAINE HCL 1%, 10 MG/ML (20ML VIAL) ONE (09:18)
[2022-10-28] MEDS ORDERED: BUPIVACAINE HCL/PF 0.25% (2.5MG/ML) 10 ML VIAL ONE (09:18)
[2022-10-28] MEDS ORDERED: PROPOFOL 40 ML ONE (10:00)
[2022-10-28] MEDS ORDERED: MIDAZOLAM HCL 2 MG/2 ML SINGLE DOSE VIAL ONE (10:00)
[2022-10-28] MEDS ORDERED: ACETAMINOPHEN 325 MG TABLET (FP) PO PRN (10:36)
[2022-10-28] MEDS ORDERED: METOCLOPRAMIDE HCL INJECTION 10 MG/2 ML VIAL ONE (10:37)
[2022-10-28] MEDS ORDERED: LACTATED RINGERS SOLUTION 1,000 ML IV SCH (10:45)
[2022-10-28] MEDS ORDERED: ceFAZolin SODIUM 1 GM VIAL ONE ×2 (11:20)
[2022-10-28] MEDS ORDERED: LIDOCAINE HCL 2% 100 MG/5 ML DISP.SYRIN ONE (11:20)
[2022-10-28 12:25] VITALS: TEMP 98
[2022-10-28 12:32] VITALS: BP 124/78; PULSE 76; RESP 19
== END 2022-10-28 13:20 | disposition home or self-care (01) ==
LOC: FASU 08:16
PROVIDERS: ATTEND Orthopaedic Surgery
PROC: 0LN70ZZ Release Right Hand Tendon, Open Approach (ICD-10-PCS; principal; 2022-10-28 11:23)
DX: M65.341 Trigger finger, right ring finger (principal)
CPT/HCPCS: 82962; 88304-TC

== ENCOUNTER 2024-08-20 11:08 | Emergency (ER) | payer OTHER ==
[2024-08-20 11:24] VITALS: BP 125/84; PULSE 88; RESP 17; TEMP 97.9; BMI 26.7
[2024-08-20 13:14] LABS: BASO % 0.5 % (0-2.0); EOS % 1.7 % (0-4.5); HEMATOCRIT 36.5 % (32.4-45.2); HEMOGLOBIN 12.4 GM/dL (10.7-15.3); LYMPH % 19.5 % (8-40); MCH 29.7 pg (25.7-33.7); MCHC 33.9 g/dl (32.0-36.0); MEAN CELL VOLUME 87.5 fl (80-96); MEAN PLT VOLUME 10.4 fl (7.5-11.1); MONO % 5.8 % (3.8-10.2); NEUT % 72.5 % (42.8-82.8); PLATELET COUNT 86 10^3/uL (134-434); RBC 4.17 M/mm3 (3.60-5.2); RDW 15.5 % (11.6-15.6); WHITE BLOOD COUNT 7.5 K/mm3 (4.0-10.0)
[2024-08-20 13:16] LABS: ACTIVATED PTT 35.1 SECONDS (25.2-36.5); INR 0.96 (0.83-1.09); PROTHROMBIN TIME (PATIENT) 11.1 SEC (9.7-13.0)
[2024-08-20 13:25] LABS: POTASSIUM 4.4 mmol/L (3.5-5.1)
[2024-08-20 13:27] LABS: CALCIUM 9.1 mg/dL (8.5-10.1)
[2024-08-20 13:28] LABS: ALBUMIN 3.8 g/dl (3.4-5.0); BLOOD UREA NITROGEN 17.3 mg/dL (7-18)
[2024-08-20 13:31] LABS: CREATININE 0.7 mg/dL (0.55-1.3)
[2024-08-20 13:33] LABS: BILIRUBIN,TOTAL 0.4 mg/dL (0.2-1); TOT PROT 7.3 g/dl (6.4-8.2)
[2024-08-20 13:36] LABS: N-TERMINAL BNP 278.4 pg/ml (5-125)
== END 2024-08-20 15:24 | disposition home or self-care (01) ==
LOC: JER 11:08
DX: R07.2 Precordial pain (principal); Z20.822 Contact with and (suspected) exposure to COVID-19
CPT/HCPCS: 0241U-QW; 36415; 71046-TC-FY; 80053; 83880; 84484; 85025; 85610; 85730; 86850; 86870; 86880; 86900; 86901; 86902; 93005; 93010; 99285-25